=== PATIENT | male | born 2000 | race Caucasian/White ===

== ENCOUNTER 2018-05-03 22:54 | Emergency (ER) | payer OTHER ==
[~2018-05-03] VITALS: Ht 190.5 cm; Wt 93.1 kg
[~2018-05-03 22:54] MED LIST: NAPROSYN500 MG PO
[2018-05-04] MEDS ORDERED: MOTRIN800 MG PO (00:07)
[2018-05-04 00:28] VITALS: BP 135/69
== END 2018-05-04 00:20 | disposition home or self-care (01) | DRG 563 ==
LOC: ED 22:54
DX: S93.602A Unspecified sprain of left foot, initial encounter (principal); S93.402A Sprain of unspecified ligament of left ankle, initial encounter; X50.1XXA Overexertion from prolonged static or awkward postures, initial encounter; Y93.67 Activity, basketball; Y92.22 Religious institution as the place of occurrence of the external cause